=== PATIENT | female | born 1960 | race Caucasian/White ===

== ENCOUNTER 2017-07-05 10:45 | Emergency (ER) | payer SELFPAY ==
[~2017-07-05] VITALS: Ht 172.7 cm; Wt 88.4 kg
[~2017-07-05 10:45] MED LIST: HYDR-3535 PO; INDO50 PO; LISI-366 PO; ULTR50TA PO; ZOCO40TA PO
[2017-07-05 10:49] VITALS: BP 156/72; PULSE 99; RESP 18; TEMP 98.4; O2SAT 97
[2017-07-05] MEDS ORDERED: TRAM50TA PO (10:59)
[2017-07-05] MEDS ORDERED: LISI40TA PO (10:59)
[2017-07-05] MEDS ORDERED: ZOCO40TA PO (10:59)
[2017-07-05] MEDS ORDERED: ACETAMINOPHEN 500 MG CPLT PO ONE (11:15)
[2017-07-05] MEDS ORDERED: SODIUM CHLOR 0.9% 1000 ML INJ 1,000 ML IV ONE (11:15)
[2017-07-05 11:23] LABS: BILIRUBIN, URINE NEG (NEG); BLOOD, URINE SMALL (NEG); GLUCOSE,URINE NEG (NEG); KETONE, URINE NEG (NEG); NITRITE,URINE NEG (NEG); URINE LEUKOCYTE ESTERASE NEG (NEG)
[2017-07-05 11:57] LABS: SQUAMOUS EPITHELIAL CELL URINE 0-2 /hpf (0-5)
[2017-07-05 12:03] LABS: CHLORIDE 108 MEQ/L (98-107); SODIUM (NA) 138 MEQ/L (136-145)
[2017-07-05 12:06] LABS: ALBUMIN 4.2 GM/DL (3.4-5.0); AUTOMATED NEUTROPHIL # 6.2 TH/MM3 (1.8-7.7); BASOPHIL # 0.1 TH/MM3 (0-0.2); BASOPHIL % 1.1 % (0.0-2.0); BICARBONATE 25.3 MEQ/L (21.0-32.0); BLOOD UREA NITROGEN 12 MG/DL (7-18); CALCIUM 9.4 MG/DL (8.5-10.1); EOSINOPHIL # 0.1 TH/MM3 (0-0.4); EOSINOPHIL % 0.6 % (0.0-4.0); GLUCOSE,RANDOM 104 MG/DL (74-106); HEMATOCRIT 47.2 % (35.0-46.0); LYMPHOCYTE # 2.8 TH/MM3 (1.0-4.8); MEAN CELL VOLUME 92.2 FL (80.0-100.0); MEAN CORPUSCULAR HEMOGLOBIN 25.4 PG (27.0-34.0); MEAN PLATELET VOLUME 7.6 FL (7.0-11.0); MONO % 4.9 % (0.0-8.0); MONOCYTE # 0.5 TH/MM3 (0-0.9); NEUT % 64.4 % (16.0-70.0); PLATELET COUNT 506 TH/MM3 (150-450); RED BLOOD COUNT 5.11 MIL/MM3 (4.00-5.30); RED CELL DISTRIBUTION WIDTH 12.3 % (11.6-17.2); WHITE BLOOD COUNT 9.7 TH/MM3 (4.0-11.0)
[2017-07-05 12:09] LABS: ALT (GPT) 21 U/L (10-53); AST (GOT) 10 U/L (15-37)
[2017-07-05 12:10] VITALS: BP 134/72; PULSE 75; RESP 18; O2SAT 99
[2017-07-05 12:10] LABS: CREATININE 0.69 MG/DL (0.50-1.00); GLOMERULAR FILTRATION RATE 88 ML/MIN (>89)
[2017-07-05 12:11] LABS: TOTAL BILIRUBIN ADULT 0.2 MG/DL (0.2-1.0); TOTAL PROTEIN 7.8 GM/DL (6.4-8.2)
[2017-07-05 12:12] LABS: ALKALINE PHOSPHATASE 91 U/L (45-117)
[2017-07-05 12:24] LABS: MEAN CORPUSCULAR HGB CONC 27.5 % (32.0-36.0)
--- NOTE | 2017-07-05 12:54 | PD ---
HPI Chief Complaint: Flank/Kidney Pain Time Seen by Provider: 10:53 Travel History International Travel<30 days: No Contact w/Intl Traveler<30days: No Traveled to known affect area: No History of Present Illness HPI This is a 56-year-old female who presents to the emergency department with right -sided flank pain that has been going on for 1 week, constant, moderate severity , throbbing with some associated nausea and some cloudy urine. She denies any fevers or chills. She has never had pain like this before. She does have a history of vaginal cancer and had a hysterectomy. Follow-up studies were all normal but she has not seen a primary care doctor in several years. PFSH Past Medical History Arthritis: Yes Depression: Yes Heart Rhythm Problems: No Cancer: Yes (vaginal) Cardiac Catheterization: No Cardiovascular Problems: Yes High Cholesterol: Yes Congestive Heart Failure: No Diabetes: Yes Diminished Hearing: No Fibromyalgia: Yes Gastrointestinal Disorders: Yes (BARRETTS ESOPHAGITIS) Hypertension: Yes Neurologic: Yes ( NEUROPATHY) Immunizations Current: Yes Tetanus Vaccination: > 5 Years Influenza Vaccination: No ?: Not Menopausal: Yes Past Surgical History Coronary Artery Bypass Graft: No Hysterectomy: Yes (PARTIAL) Social History Alcohol Use: No Tobacco Use: Yes (1 pk) Substance Use: No Allergies-Medications (Allergen,Severity, Reaction): Coded Allergies: ibuprofen (Unverified Allergy, Severe, Nausea/Vomiting, 07/05/17) Reported Meds & Prescriptions Reported Meds & Active Scripts Active Reported Tramadol (Tramadol HCl) 50 Mg Tab 50 Mg PO Q6H PRN Zocor (Simvastatin) 40 Mg Tab 40 Mg PO DAILY Lisinopril 40 Mg Tab 40 Mg PO DAILY Review of Systems Except as stated in HPI: all other systems reviewed are Neg Physical Exam Narrative GENERAL:Well appearing, no acute distress SKIN: Focused skin assessment warm and dry. HEAD: Atraumatic. Normocephalic. EYES: Pupils equal and round. No injection or drainage. ENT: Moist mucous membranes NECK: Trachea midline. CARDIOVASCULAR: Regular rate and rhythm. No murmur appreciated. RESPIRATORY: Clear to auscultation. Breath sounds equal bilaterally. GASTROINTESTINAL: Abdomen soft, mildly tender to palpation in the upper abdomen bilaterally with no rebound or guarding. : Right CVA tenderness MUSCULOSKELETAL: No obvious deformities. NEUROLOGICAL: Awake and alert. No obvious cranial nerve deficits. Moving all extremities. PSYCHIATRIC: Appropriate mood and affect; insight and judgment normal. Data Data Last Documented VS Vital Signs Date Time Temp Pulse Resp B/P (MAP) Pulse Ox O2 Delivery O2 Flow Rate FiO2 07/05/17 13:40 73 18 139/72 (94) 98 Room Air 07/05/17 10:49 98.4 Orders Orders Urinalysis - C+S If Indicated (07/05/17 11:00) Complete Blood Count With Diff (07/05/17 11:05) Comprehensive Metabolic Panel (07/05/17 11:05) ^ Insert Iv (07/05/17 11:05) Sodium Chlor 0.9% 1000 Ml Inj (Ns 1000 M (07/05/17 11:15) Acetaminophen (Tylenol) (07/05/17 11:15) Ct Abd/Pel W Iv Contrast(Rout) (07/05/17 ) Iohexol 350 Inj (Omnipaque 350 Inj) (07/05/17 13:45) Labs Laboratory Tests Test 07/05/17 11:00 07/05/17 11:45 Urine Collection Type CLEAN CATCH Urine Color NONE Urine Turbidity CLEAR Urine pH 5.0 Urine Specific [place] LESS/EQUAL 1.005 Urine Protein NEG mg/dL Urine Glucose (UA) NEG mg/dL Urine Ketones NEG mg/dL Urine Occult Blood SMALL Urine Nitrite NEG Urine Bilirubin NEG Urine Urobilinogen 0.2 MG/DL Urine Leukocyte Esterase NEG Urine Squamous Epithelial Cells 0-2 /hpf Microscopic Urinalysis Comment CULT NOT INDICATED White Blood Count 9.7 TH/MM3 Red Blood Count 5.11 MIL/MM3 Hemoglobin 13.0 GM/DL Hematocrit 47.2 % Mean Corpuscular Volume 92.2 FL Mean Corpuscular Hemoglobin 25.4 PG Mean Corpuscular Hemoglobin Concent 27.5 % Red Cell Distribution Width 12.3 % Platelet Count 506 TH/MM3 Mean Platelet Volume 7.6 FL Neutrophils (%) (Auto) 64.4 % Lymphocytes (%) (Auto) 29.0 % Monocytes (%) (Auto) 4.9 % Eosinophils (%) (Auto) 0.6 % Basophils (%) (Auto) 1.1 % Neutrophils # (Auto) 6.2 TH/MM3 Lymphocytes # (Auto) 2.8 TH/MM3 Monocytes # (Auto) 0.5 TH/MM3 Eosinophils # (Auto) 0.1 TH/MM3 Basophils # (Auto) 0.1 TH/MM3 CBC Comment AUTO DIFF Differential Comment AUTO DIFF CONFIRMED Platelet Estimate HIGH Platelet Morphology Comment NORMAL Blood Urea Nitrogen 12 MG/DL Creatinine 0.69 MG/DL Random Glucose 104 MG/DL Total Protein 7.8 GM/DL Albumin 4.2 GM/DL Calcium Level 9.4 MG/DL Alkaline Phosphatase 91 U/L Aspartate Amino Transf (AST/SGOT) 10 U/L Alanine Aminotransferase (ALT/SGPT) 21 U/L Total Bilirubin 0.2 MG/DL Sodium Level 138 MEQ/L Potassium Level 4.6 MEQ/L Chloride Level 108 MEQ/L Carbon Dioxide Level 25.3 MEQ/L Anion Gap 5 MEQ/L Estimat Glomerular Filtration Rate 88 ML/MIN [facility] Medical Decision Making Medical Screen Exam Complete: Yes Emergency Medical Condition: Yes Interpretation(s) Afebrile, mild tachycardia, hypertensive No leukocytosis Electrolytes are reassuring Urinalysis is negative for infection Last 24 hours Impressions Abdomen/Pelvis CT 07/05/17 0000 Signed Impressions: CONCLUSION: 1. 7 mm probable cyst posterior right lobe liver. 2. Otherwise, unremarkable CT abdomen and pelvis for patient's age. Differential Diagnosis Pyelonephritis, nephrolithiasis, obstructive nephropathy, malignancy, musculoskeletal pain Narrative Course This is a 59-year-old female who presents to the emergency department with right -sided flank pain. She has a benign exam. She was placed on a monitor and an IV was established. Labs are reassuring. Urinalysis is negative for infection. CT abdomen and pelvis is negative for acute process, specifically nephrolithiasis or malignancy. Patient is on long-acting morphine per prescription drug database which she did not disclose in the emergency department. She will be discharged on meloxicam for likely musculoskeletal back pain. Diagnosis Primary Impression: Musculoskeletal back pain Patient Instructions: General Instructions Additional Instructions: If you develop weakness of your legs, difficulty walking, numbness of your legs or your genital or rectal area, loss of your bowel or bladder, or difficulty urinating return to the emergency department immediately. Followup with your primary care physician in one week if your symptoms have not improved. Med/Other Pt SpecificInfo: Prescription(s) given Scripts Meloxicam (Meloxicam) 7.5 Mg Tab 7.5 MG PO DAILY for Arthritis Pain for 14 Days, #14 TAB 0 Refills Prov: Kay Ruggiero MD 07/05/17 Disposition: 01 DISCHARGE HOME Condition: Stable Kay Ruggiero MD July 05, 2017 12:54
[2017-07-05 13:40] VITALS: BP 139/72; PULSE 73; RESP 18; O2SAT 98
[2017-07-05] MEDS ORDERED: IOHEXOL 350 MG/ML 10 ML VIAL (for RAD DIAG) IVCONTRAST ONE (13:45)
--- NOTE | 2017-07-05 14:05 | RADRPT ---
EXAM DATE: 07/05/2017 1:57 PM EDT AGE/SEX: 56 years / Female INDICATIONS: Bilateral flank pain for one week. CLINICAL DATA: This is the patient's initial encounter. Patient reports that signs and symptoms have been present for 1 week and indicates a pain score of 6/10. MEDICAL/SURGICAL HISTORY: Gastroesophageal reflux disease. vaginal cancer Hysterectomy. ORAL CONTRAST: No oral contrast ingested. RADIATION DOSE: 17.47 CTDI (mGy) COMPARISON: No prior [facility] exams available for comparison. TECHNIQUE: Multiple contiguous axial images were obtained through the abdomen and pelvis following b olus infusion of 94 ml Omnipaque 350 (iohexol) nonionic water-soluble contrast as a single exam dos e. No oral contrast ingested. Using automated exposure control and adjustment of the mA and/or kV ac cording to patient size, the radiation dose was kept as low as reasonably achievable to obtain optima l diagnostic quality images. FINDINGS: Lower Lungs: The visualized lower lungs are clear. Liver: The liver has a homogeneous density. There is a 7 mm cyst in the posterior right lobe liver. T here is no dilation of the biliary tree. The gallbladder is unremarkable. Spleen: Homogeneous density without enlargement. Pancreas: Unremarkable without mass or calcification. Kidneys: Normal in size and shape. No evidence of mass or hydronephrosis. Adrenal Glands: Unremarkable. Aorta: The aorta and proximal iliac vessels are grossly unremarkable without aneurysmal dilation. Bowel/Mesentery: The bowel loops are grossly unremarkable. The cecum and sigmoid colon have a normal configuration. No inflammatory changes are demonstrated. There is stool throughout the colon. No bhavik e fluid or loculated fluid collections are demonstrated. Abdominal Wall: Intact. Retroperitoneum: No evidence of adenopathy in the retrocrural, para-aortic, or deep pelvic regions. Bladder: Contours are smooth. Reproductive Organs: No abnormal masses or calcifications seen. Inguinal: The inguinal region is unremarkable without evidence of adenopathy. Bony Structures: Mild degenerative changes. CONCLUSION: 1. 7 mm probable cyst posterior right lobe liver. 2. Otherwise, unremarkable CT abdomen and pelvis for patient's age. Electronically signed by: Anastacio Potter MD 07/05/2017 2:04 PM EDT
[2017-07-05] MEDS ORDERED: MELO7.5T27 PO (14:17)
== END 2017-07-05 14:24 | disposition home or self-care (01) ==
LOC: PHED 10:45
DX: M54.9 Dorsalgia, unspecified (principal); E11.9 Type 2 diabetes mellitus without complications; E78.00 Pure hypercholesterolemia, unspecified; F32.9 Major depressive disorder, single episode, unspecified; I10 Essential (primary) hypertension; K21.9 Gastro-esophageal reflux disease without esophagitis; G62.9 Polyneuropathy, unspecified; F17.200 Nicotine dependence, unspecified, uncomplicated; Z85.44 Personal history of malignant neoplasm of other female genital organs
CPT/HCPCS: 74177; 80053; 81001; 85025; 96360; 99284; J7030; Q9967